=== PATIENT | female | born 1960 | race Caucasian/White ===

== ENCOUNTER 2019-07-14 18:12 | Emergency (ER) | payer OTHER ==
[2019-07-14] MEDS ORDERED: Ketorolac 30 MG/ML SDV IM ONE (19:35)
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
== END 2019-07-14 20:35 | disposition home or self-care (01) ==
LOC: MW.ED 18:12
DX: S16.1XXA Strain of muscle, fascia and tendon at neck level, initial encounter (principal); S00.83XA Contusion of other part of head, initial encounter; F17.210 Nicotine dependence, cigarettes, uncomplicated; Z88.0 Allergy status to penicillin; Y04.0XXA Assault by unarmed brawl or fight, initial encounter
CPT/HCPCS: 70450; 71045; 72125; 96372; 99284; J1885; 99283

== ENCOUNTER 2019-10-26 13:38 | Emergency (ER) | payer SELFPAY ==
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
[2019-10-26] MEDS ORDERED: Ketorolac 60 MG/2 ML SDV IM ONE (16:30)
== END 2019-10-26 17:07 | disposition home or self-care (01) ==
LOC: MW.ED 13:38
DX: S39.012A Strain of muscle, fascia and tendon of lower back, initial encounter (principal); F17.210 Nicotine dependence, cigarettes, uncomplicated; Z88.0 Allergy status to penicillin; Y04.0XXA Assault by unarmed brawl or fight, initial encounter
CPT/HCPCS: 81001; 96372; 99283; J1885

== ENCOUNTER 2020-02-17 18:40 | Emergency (ER) | payer SELFPAY ==
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
== END 2020-02-17 20:27 | disposition home or self-care (01) ==
LOC: MW.ED 18:40
DX: G47.00 Insomnia, unspecified (principal); F41.9 Anxiety disorder, unspecified; F32.9 Major depressive disorder, single episode, unspecified; Z88.0 Allergy status to penicillin; Z79.899 Other long term (current) drug therapy; F17.210 Nicotine dependence, cigarettes, uncomplicated
CPT/HCPCS: 36415; 82962; 84484; 93005; 93010; 99283; 99283-25

== ENCOUNTER 2021-09-12 15:30 | Emergency (ER) | payer SELFPAY ==
[2021-09-12] MEDS ORDERED: LORazepam 1 MG Tab PO ONE (16:03)
[2021-09-12 16:46] LABS: CARBON DIOXIDE,CO2 28.4 mmol/L (21.0-32.0); POTASSIUM,K 3.9 mmol/L (3.5-5.1)
== END 2021-09-12 17:19 | disposition home or self-care (01) ==
LOC: MW.ED 15:30
DX: F41.9 Anxiety disorder, unspecified (principal); Z88.0 Allergy status to penicillin
CPT/HCPCS: 36415; 70450; 80053; 80305; 81001; 84443; 85025; 93005; 99284; A9270

== ENCOUNTER 2022-09-27 17:35 | Emergency (ER) | payer SELFPAY ==
[2022-09-27] MEDS ORDERED: Sodium Chloride 0.9% 1,000 ML IV ONE (17:50)
[2022-09-27 18:48] LABS: BASOPHILS PERCENT AUTO 0.3 % (0.0-1.5); EOSINOPHILS ABSOLUTE AUTO 0.1 K/uL (0.0-0.7); HEMATOCRIT 46.4 % (36.0-46.0); HEMOGLOBIN 15.6 g/dL (12.0-16.0); LYMPHOCYTES ABSOLUTE AUTO 2.1 K/uL (0.6-2.4); LYMPHOCYTES PERCENT AUTO 19.1 % (16.0-40.0); MEAN CORPUSCULAR HEMOGLOBIN 31.2 pg (27.0-32.0); MEAN CORPUSCULAR HGB CONC 33.6 g/dL (31.0-37.0); MEAN CORPUSCULAR VOLUME 92.8 fL (80.0-98.0); MONOCYTES ABSOLUTE AUTO 0.8 K/uL (0.0-0.8); MONOCYTES PERCENT AUTO 7.2 % (0.0-15.0); NEUTROPHILS ABSOLUTE AUTO 7.9 K/uL (1.4-5.7); NEUTROPHILS PERCENT AUTO 72.4 % (48.0-80.0); NRBC ABSOLUTE 0 K/uL; PLATELET COUNT,PLT 318 K/uL (150-400); WHITE BLOOD CELL COUNT,WBC 10.87 K/uL (4.0-11.0)
[2022-09-27 19:17] LABS: A/G RATIO 0.9 (0.9-1.6); ALANINE AMINOTRANSFERASE,ALT 21 IU/L (14-63); ALBUMIN 3.7 g/dL (3.4-5.0); ALKALINE PHOSPHATASE 112 U/L (46-116); ASPARTATE AMNIOTRANSFERASE,AST 14 IU/L (15-37); BILIRUBIN TOTAL 0.4 mg/dL (0.2-1.0); BLOOD UREA NITROGEN,BUN 17 mg/dL (7.0-18.0); CALCIUM 9.2 mg/dL (8.5-10.1); CARBON DIOXIDE,CO2 23.3 mmol/L (21.0-32.0); CHLORIDE,CL 105 mmol/L (98-107); EST CRCL DRUG DOSING (CG) 61.74 mL/min; GLUCOSE RANDOM 101 mg/dL (74-106); LACTIC ACID 1.3 mmol/L (0.4-2.0); MAGNESIUM 1.8 mg/dL (1.8-2.4); POTASSIUM,K 3.5 mmol/L (3.5-5.1); PROTEIN TOTAL,TP 7.8 g/dL (6.4-8.2); SODIUM,NA 142 mmol/L (136-145)
[2022-09-27 19:18] LABS: ESTIMATED GFR 64 mL/min (>60)
[2022-09-27 20:30] LABS: BILIRUBIN,URINE NEGATIVE (NEGATIVE); COLOR,URINE YELLOW; GLUCOSE,URINE NEGATIVE (NEGATIVE); KETONES,URINE NEGATIVE (NEGATIVE); LEUKOCYTE ESTERASE,URINE NEGATIVE (NEGATIVE); NITRITE,URINE NEGATIVE (NEGATIVE); OCCULT BLOOD,URINE NEGATIVE (NEGATIVE); PH,URINE 5.5 (5.0-8.0); PROTEIN,URINE NEGATIVE (NEGATIVE)
[2022-09-27 20:40] LABS: APPEARANCE,URINE CLEAR
== END 2022-09-27 20:55 | disposition home or self-care (01) ==
LOC: MW.ED 17:35
DX: I95.9 Hypotension, unspecified (principal)
CPT/HCPCS: 36415; 70450; 71045; 80053; 81003; 83605; 83735; 84484; 85025; 93005; 96360; 99284; J7030

== ENCOUNTER 2024-01-12 14:03 | Emergency (ER) | payer OTHER ==
[2024-01-12] MEDS: Meclizine 25 MG Tab PO ONE (17:11)
[2024-01-12] MEDS: Ondansetron 4 MG/2 ML SDV IVPUSH ONE (17:41)
[2024-01-12] MEDS: Metoclopramide 10 MG/2 ML SDV IVPUSH ONE (17:41)
[2024-01-12] MEDS: Sodium Chloride 0.9% 1,000 ML IV ONE (17:41)
[2024-01-12] MEDS: Ketorolac 30 MG/ML SDV IVPUSH ONE (17:41)
[2024-01-12] MEDS: diphenhydrAMINE 50 MG/ML SDV IVPUSH ONE (17:41)
[2024-01-12 17:59] LABS: BASOPHILS ABSOLUTE AUTO 0.04 K/uL (0.00-0.20); BASOPHILS PERCENT AUTO 0.4 % (0.0-1.0); EOSINOPHILS ABSOLUTE AUTO 0.05 K/uL (0.00-0.45); EOSINOPHILS PERCENT AUTO 0.5 % (0.0-6.0); HEMATOCRIT 45.1 % (37.0-47.0); HEMOGLOBIN 15.1 g/dL (12.0-16.0); IMMATURE GRAN ABSOLUTE AUTO 0.03 K/uL (0.00-0.05); IMMATURE GRAN PERCENT AUTO 0.3 % (0.0-0.4); LYMPHOCYTES ABSOLUTE AUTO 1.67 K/uL (1.00-4.80); LYMPHOCYTES PERCENT AUTO 17.6 % (24.0-44.0); MEAN CORPUSCULAR HEMOGLOBIN 30.8 pg (28.0-32.0); MEAN CORPUSCULAR HGB CONC 33.5 g/dL (32.0-36.0); MEAN CORPUSCULAR VOLUME 91.9 fL (83.0-99.0); MEAN PLATELET VOLUME 9.4 fL (9.4-12.3); MONOCYTES ABSOLUTE AUTO 0.74 K/uL (0.00-0.80); MONOCYTES PERCENT AUTO 7.8 % (0.0-8.0); NEUTROPHILS ABSOLUTE AUTO 6.96 K/uL (1.80-7.70); NEUTROPHILS PERCENT AUTO 73.4 % (41.0-71.0); PLATELET COUNT,PLT 311 K/uL (150-400); RED BLOOD CELL COUNT 4.91 M/uL (4.10-5.30); WHITE BLOOD CELL COUNT,WBC 9.49 K/uL (3.9-11.3)
[2024-01-12 18:41] LABS: APPEARANCE,URINE SLT CLOUDY; BILIRUBIN,URINE NEGATIVE (NEGATIVE); COLOR,URINE YELLOW; GLUCOSE,URINE NEGATIVE (NEGATIVE); KETONES,URINE NEGATIVE (NEGATIVE); LEUKOCYTE ESTERASE,URINE SMALL (NEGATIVE); NITRITE,URINE NEGATIVE (NEGATIVE); OCCULT BLOOD,URINE TRACE-INTACT (NEGATIVE); PH,URINE 5.5 (5.0-8.0); PROTEIN,URINE NEGATIVE (NEGATIVE); UROBILINOGEN,URINE 0.2 EU/dL (<2.0)
[2024-01-12 18:46] LABS: A/G RATIO 0.8 (0.9-1.6); ALBUMIN 3.3 g/dL (3.4-5.0); BILIRUBIN TOTAL 0.4 mg/dL (0.2-1.0); CALCIUM 9.3 mg/dL (8.5-10.1); CARBON DIOXIDE,CO2 26.3 mmol/L (21.0-32.0); CREATININE 1.1 mg/dL (0.6-1.0); EST CRCL DRUG DOSING (CG) 55.42 mL/min; PROTEIN TOTAL,TP 7.3 g/dL (6.4-8.2); TSH ULTRASENSITIVE 0.64 uIU/mL (0.36-3.74)
[2024-01-12 18:50] LABS: BACTERIA,URINE 2+ (NEGATIVE); MUCUS,URINE LIGHT (NONE-MOD); SQUAMOUS EPITHELIAL CELLS,UR FEW
[2024-01-12] MEDS: Dexamethasone 4 MG/ML SDV IVPUSH ONE (20:39)
[2024-01-12] MEDS: Iopamidol 755 MG/ML 500 ML Multipack Bottle IVPUSH STA (21:05)
== END 2024-01-12 20:40 | disposition left against medical advice (07) ==
LOC: MW.ED 14:03
DX: G93.9 Disorder of brain, unspecified (principal); R93.0 Abnormal findings on diagnostic imaging of skull and head, not elsewhere classified; F17.210 Nicotine dependence, cigarettes, uncomplicated; Z79.899 Other long term (current) drug therapy; Z88.0 Allergy status to penicillin
CPT/HCPCS: 36415; 70450; 70460; 80053; 81001; 84443; 85025; 87086; 96361; 96374; 96375; 99284; J1200; J1885; J2405; J2765; J7030; Q9967

== ENCOUNTER 2024-01-15 14:58 | Emergency (ER) | payer OTHER ==
[2024-01-15] MEDS: Acetaminophen 325 MG Tab PO ONE (17:35)
== END 2024-01-15 19:36 | disposition left against medical advice (07) ==
LOC: MW.ED 14:58
DX: G93.9 Disorder of brain, unspecified (principal); F17.210 Nicotine dependence, cigarettes, uncomplicated; Z79.899 Other long term (current) drug therapy; Z88.0 Allergy status to penicillin
CPT/HCPCS: 70450; 99283; A9270

== ENCOUNTER 2024-11-30 13:03 | Emergency (ER) | payer OTHER | END 2024-11-30 17:06 | disposition home or self-care (01) | LOC: MW.ED 13:03 | DX: J06.9 Acute upper respiratory infection, unspecified (principal); R51.9 Headache, unspecified; Z75.3 Unavailability and inaccessibility of health-care facilities; Z88.0 Allergy status to penicillin; Z79.899 Other long term (current) drug therapy | CPT/HCPCS: 70450; 70450-26; 87426-QW; 87651; 99283; 99284 ==